=== PATIENT | male | born 1980 | race Caucasian/White ===

== ENCOUNTER → 2020-08-31 | Outpatient (CLI) | payer OTHER ==
[~2020-08-31] MED LIST: MORPHINE SULFAT15 M1 PO; PERCOCET 10-321 EACH PO; ZOFRAN ODT 4 MG4 MG SL; ZOFRAN4 MG PO
== END ==
LOC: CT 13:18
DX: N28.89 Other specified disorders of kidney and ureter (principal); C64.1 Malignant neoplasm of right kidney, except renal pelvis
CPT/HCPCS: 74170; Q9967

== ENCOUNTER → 2020-09-14 | Outpatient (CLI) | payer OTHER | LOC: KOH-I 09:49 | DX: M54.5 Low back pain (principal); M25.78 Osteophyte, vertebrae; M47.814 Spondylosis without myelopathy or radiculopathy, thoracic region; M41.9 Scoliosis, unspecified | CPT/HCPCS: 72070; 72100 ==

== ENCOUNTER → 2021-04-07 | Outpatient (CLI) | payer OTHER ==
[2021-04-07 12:29] LABS: HEMOGLOBIN 15.9 gm/dl (14.0-17.5); RED BLOOD COUNT 5.68 M/UL (4.20-5.50); WHITE BLOOD COUNT 19.3 K/UL (4.5-11.0)
== END ==
LOC: US 10:15
PROVIDERS: Internal Medicine Nephrology
DX: N18.31 Chronic kidney disease, stage 3a (principal); E78.5 Hyperlipidemia, unspecified; E55.9 Vitamin D deficiency, unspecified
CPT/HCPCS: 36415; 80053; 82550; 82570; 83970; 84100; 84156; 85025

== ENCOUNTER → 2021-05-06 | Outpatient (CLI) | payer OTHER | LOC: CT 13:21 | DX: N28.89 Other specified disorders of kidney and ureter (principal) | CPT/HCPCS: Q9965 ==

== ENCOUNTER 2021-07-26 22:51 | Emergency (ER) | payer OTHER ==
[2021-07-26 23:30] LABS: HEMOGLOBIN 17.7 gm/dl (14.0-17.5); RED BLOOD COUNT 5.93 M/UL (4.20-5.50); WHITE BLOOD COUNT 16.5 K/UL (4.5-11.0)
[2021-07-26 23:55] LABS: BUN/CREATININE RATIO 12 (0-10)
[2021-07-27] MEDS ORDERED: PHENERGAN 25 MG25 M1 PO (02:52)
== END 2021-07-27 03:00 | disposition home or self-care (01) ==
LOC: ER1 22:51
PROVIDERS: Physician Assistant
DX: E11.65 Type 2 diabetes mellitus with hyperglycemia (principal); E87.6 Hypokalemia; R10.11 Right upper quadrant pain; R10.13 Epigastric pain; R19.7 Diarrhea, unspecified; J94.9 Pleural condition, unspecified; Z85.828 Personal history of other malignant neoplasm of skin; Z90.5 Acquired absence of kidney; F17.210 Nicotine dependence, cigarettes, uncomplicated; Z20.822 Contact with and (suspected) exposure to COVID-19
CPT/HCPCS: 0240U; 80053; 82009; 82800; 83605; 83690; 83735; 84100; 85025; 93005; 96374; 96375; 99284; J2405; J2765; J7030